=== PATIENT | male | born 1960 | race Caucasian/White ===

== ENCOUNTER 2016-09-28 09:07 | Emergency (ER) | payer OTHER ==
[2016-09-28 09:58] VITALS: BP 149/88
--- NOTE | 2016-09-28 16:13 | UC ---
IEzequiel,Sergio, scribed for Hafsa You MD on 09/28/16 at 1008 . Lower Extremity/Ankle HPI - HPI Summary HPI Summary: This 55 y/o male presents to [facility] for chronic bilat BLE pain since 2 months ago. Pain is located sacral area, bilat lateral upper legs, and radiates down to bilat ankles. He has had physical therapy, and had X-ray taken via PCP about 2 weeks ago. He reports "a little hook in my spine" indicated in X-ray. He has defib/pacer in place, and states that he was denied MRI due to his defib. He denies any known spinal stenosis. He denies any prior injuries to legs or hips. He is able to ambulate independently. Prolonged standing makes the pain worse. Pain does not radiate to back. He is currently disabled due to his cardiac status. He also c/o nonproductive cough and sinus discomfort since a week. Negative fever. Plan of care involving discharge and outpatient f/u is discussed with pt and present at bedside, and they are agreeable. Physical therapy treatment and specialist's treatment are recommended. Questions regarding pain control with NSAID are answered. - History of Current Complaint Chief Complaint: UCLowerExtremity Stated Complaint: LEG PAIN Hx Obtained From: Patient, Medical Records Onset/Duration: Gradual Onset, Still Present Severity Initially: Mild Severity Currently: Mild Pain Intensity: 10 - when standing Pain Scale Used: 0-10 Numeric Aggravating Factor(s): Standing Alleviating Factor(s): Rest Able to Bear Weight: Yes - Allergies/Home Medications Allergies/Adverse Reactions: Allergies Allergy/AdvReac Type Severity Reaction Status Date / Time Lidocaine Allergy Tachycardia Verified 09/28/16 09:40 Home Medications: Home Medications Aspirin EC TAB* [Ecotrin EC TAB*] 1 tab QPM 09/28/16 [History Confirmed 09/28/16 ] Carvedilol TAB* [Coreg TAB*] 1 tab BID 09/28/16 [History Confirmed 09/28/16] Sotalol TAB* [Betapace TAB*] 120 mg SEE INSTRUCTIONS 09/28/16 [History Confirmed 09/28/16] Warfarin TAB(*) [Coumadin TAB(*)] 1 tab DAILY 09/28/16 [History Confirmed ] Warfarin TAB(*) [Coumadin TAB(*)] 1 tab WEEKLY 09/28/16 [History Confirmed 09/28] PMH/Surg Hx/FS Hx/Imm Hx Cardiovascular History Of: Reports: Cardiac Disorders, Pacemaker/ICD, Myocardial Infarction - Surgical History Surgical History: Yes Surgery Procedure, Year, and Place: Defib/Pacemaker. Gallbladder 2002. Appendix as child - Family History Known Family History: Positive: Cardiac Disease, Other - scoliosis to father, who worked as a dairy science teacher. - Social History Occupation: Disabled Lives: With Family Alcohol Use: Hx of alcohol dependence per pt Substance Use Type: None Smoking Status (MU): Never Smoked Tobacco Review of Systems Constitutional: Negative Skin: Negative Eyes: Negative ENT: Other - sinus pressure, PND Respiratory: Cough Cardiovascular: Negative Gastrointestinal: Negative Genitourinary: Negative Motor: Negative Neurovascular: Negative Musculoskeletal: Arthralgia, Other: - BLE pain Neurological: Negative Psychological: Negative All Other Systems Reviewed And Are Negative: Yes Physical Exam Triage Information Reviewed: Yes Appearance: Well-Appearing, No Pain Distress, Obese Vital Signs: Initial Vital Signs Resp 18 09/28/16 09:44 Vital Signs Reviewed: Yes Eyes: Positive: Conjunctiva Clear ENT: Positive: Pharynx normal, TMs normal Neck: Positive: Supple, Nontender, No Lymphadenopathy Respiratory: Positive: Lungs clear, Normal breath sounds, No respiratory distress Cardiovascular: Positive: RRR, No Murmur, Pulses Normal, Brisk Capillary Refill Abdomen Description: Positive: Nontender, No Organomegaly, Soft. Negative: CVA Tenderness (R), CVA Tenderness (L), Distended, Guarding, McBurney's Point Tenderness, Peritoneal Signs, Pulsatile Mass Bowel Sounds: Negative: Present Musculoskeletal: Positive: ROM Intact. Negative: Other: - No obvious sign of scoliosis. Normal gait, able to walk on heels and toes Neurological: Positive: Alert, Muscle Tone Normal, Other: - reflexes 2+ knee and ankle, sensation intact to light touch bilaterally Psychological Exam: Normal Skin Exam: Normal Re-Evaluation - Re-Evaluation First Eval Re-Evaluation Time: 10:16 Change: Unchanged Comment: Plan of care involving abx treatment and pain medications are discussed with pt and . Lower Extremity Course/Dx - Differential Dx/Diagnosis Differential Diagnosis/HQI/PQRI: Sprain, Strain, Other - scoliosis, spinal stenosis, bulging/herniated disc Provider Diagnoses: acute Back pain. acute sinusitis Discharge - Discharge Plan Condition: Stable Disposition: HOME Prescriptions: Amoxicillin/Clavulanate TAB* [Augmentin TAB 875*] 875 mg PO BID #20 tab Cyclobenzaprine TAB* [Flexeril TAB*] 10 mg PO TID PRN #20 tab PRN Reason: Pain Patient Education Materials: Back Pain (ED), Sinusitis (ED) Referrals: Barney Ocasio MD [Medical Doctor] - 2 Days Additional Instructions: Dr. You recommends that you take only acetaminophen for pain. You may take 1000mg four times a day. See the orthopedist regarding your leg pain. Dr. You feels that your leg pain is most likely coming from your back. Return to urgent care if any new or worsening symptoms. The documentation as recorded by the Ezequiel scherer Soohyun accurately reflects the service I personally performed and the decisions made by , Hafsa You MD.
== END 2016-09-28 10:30 | disposition home or self-care (01) ==
LOC: UCEAST 09:07
DX: M54.5 Low back pain (principal); J01.90 Acute sinusitis, unspecified; Z95.810 Presence of automatic (implantable) cardiac defibrillator; I25.2 Old myocardial infarction
CPT/HCPCS: 99212; G0463

== ENCOUNTER 2019-12-05 16:00 | Emergency (ER) | payer OTHER ==
--- NOTE | 2019-12-05 17:37 | UC ---
Respiratory Complaint HPI - HPI Summary HPI Summary: 58 yo with hx of atrial fibrillation, wth several days of nasal congestion and cough, without much production. He was seen by his PMD yesterday and given tessalon perles and flonase spray, without improvement. He is concerned that he is having more shortness of breath. No fever, chills, myalgias. He is concerned that he has pneumonia or bronchitis. Slept poorly last night, but that is not unusual for him, does not report wakening with difficulty breathing. He has a hx of CAD, with past stent several years ago. Does not take a statin because his cholesterol improved with weight loss. He states that he is not concerned about his heart. --treated September 2019 with amoxicillin and prednisone for dx of bronchitis. CXR done in September suggestive of COPD --no infectious contacts. He has been in self quarantine for the past week or so. - History of Current Complaint Stated Complaint: COLD SYPMTOMS Time Seen by Provider: 12/05/19 17:30 Hx Obtained From: Patient Onset/Duration: Gradual Onset, Lasting Days - 2 Timing: Intermittent Episodes Severity Initially: Mild Severity Currently: Moderate Character: Cough: Nonproductive Aggravating Factors: Exertion Alleviating Factors: Nothing Associated Signs And Symptoms: Positive: Dyspnea, Nasal Congestion - Risk Factors Pulmonary Embolism Risk Factors: Negative - Allergies/Home Medications Allergies/Adverse Reactions: Allergies Allergy/AdvReac Type Severity Reaction Status Date / Time lidocaine Allergy Tachycardia Verified 12/05/19 17:29 Home Medications: Home Medications Carvedilol TAB* [Coreg TAB*] 12.5 mg PO BID 09/28/16 [History Confirmed 12/05/19 ] Sotalol TAB* [Betapace 80 MG TAB*] 120 mg PO BID 09/28/16 [History Confirmed ] Warfarin TAB(*) [Coumadin TAB(*)] 1 tab PO DAILY 09/28/16 [History Confirmed ] Benzonatate CAP* [Tessalon 100 MG CAP*] 100 mg PO TID PRN 12/05/19 [History Confirmed 12/05/19] DOXYcycline CAP(*) [DOXYcycline 100MG CAP(*)] 100 mg PO BID #14 cap 12/05/19 [Rx ] Fluticasone NASAL SPRAY 50MCG* [Flonase NASAL SPRAY 50MCG*] 2 spr BOTH NARES DAILY 12/05/19 [History Confirmed 12/05/19] predniSONE [Prednisone 20 MG TAB] 2 tab PO DAILY #10 tablet 12/05/19 [Rx] PMH/Surg Hx/FS Hx/Imm Hx Cardiovascular History: Cardiac Disease, Atrial Fibrillation - paroxysmal - Surgical History Surgical History: Yes Surgery Procedure, Year, and Place: Defib/Pacemaker. Gallbladder 2002. Appendix as child - Family History Known Family History: Positive: Cardiac Disease, Other - scoliosis to father, who worked as a rattlesnake farmer. - Social History Occupation: Retired Lives: With Family Alcohol Use: None Substance Use Type: None Smoking Status (MU): Former Smoker Review of Systems All Other Systems Reviewed And Are Negative: Yes Constitutional: Positive: Fatigue Skin: Positive: Negative Eyes: Positive: Negative ENT: Positive: Sinus Congestion Respiratory: Positive: Shortness Of Breath, Cough Cardiovascular: Positive: Other - a fib, states had therapeutic INR within a few weeks.. Negative: Chest Pain Gastrointestinal: Positive: Negative - normal appetite Genitourinary: Positive: Negative Motor: Positive: Negative Neurovascular: Positive: Negative Musculoskeletal: Positive: Negative Neurological/Mental Status: Positive: Negative Psychological: Positive: Negative Is Patient Immunocompromised?: No Physical Exam Appearance: Well-Appearing, No Pain Distress, Other: - cngested Eye Exam: Normal ENT: Positive: Pharynx normal Neck: Positive: Supple, Nontender Respiratory: Positive: No respiratory distress - not tachypneic, no indrawing., Decreased breath sounds, Expiration - prolonged. Negative: Crackles, Rhonchi Cardiovascular: Positive: RRR, No Murmur Musculoskeletal Exam: Normal Musculoskeletal: Positive: No Edema Neurological: Positive: Alert, Muscle Tone Normal Psychological Exam: Normal Skin Exam: Normal Diagnostics - Radiology No standard instances Radiology Interpretation Completed By: ED Physician - Compared to September chest xray, possibly increase in right perihilar markings. No effusion, normal heart shadow. Re-Evaluation - Re-Evaluation First Eval Re-Evaluation Time: 18:35 - pulse ox 92%, occ 93 Change: Unchanged - no significant response to xopenex, some mild wheezing, no tachypnea or indrawing. Respiratory Course/Dx - Course Course Of Treatment: He declines ER evaluation at this time despite the slightly low O2 sat. States that if he does not improve he would want to go to [place] for treatment. He will begin prednisone and doxy for treatment. - Differential Dx/Diagnosis Differential Diagnosis/HQI/PQRI: Asthma, Bronchitis, Lower Resp Infection Provider Diagnosis: Bronchitis Discharge ED - Sign-Out/Discharge Documenting (check all that apply): Patient Departure All imaging exams completed and their final reports reviewed: No - Discharge Plan Condition: Stable Disposition: HOME Prescriptions: DOXYcycline CAP(*) [DOXYcycline 100MG CAP(*)] 100 mg PO BID #14 cap predniSONE [Prednisone 20 MG TAB] 2 tab PO DAILY #10 tablet Patient Education Materials: Acute Bronchitis (ED) Referrals: No Primary Care Phys,NOPCP [Primary Care Provider] - Additional Instructions: You are being treated with prednisone and doxycycline for suspected bronchitis, possible early pneumonia. The radiologist will review the xray in the morning and you will be called if there is additional information based on the report. Please take the full course of antibiotics. If you have persistent difficulty breathing, please call [phone] and proceed to the emergency department for evaluation. - Billing Disposition and Condition Condition: STABLE Disposition: Home
[2019-12-05 17:39] VITALS: BP 153/87
[2019-12-05] MEDS ORDERED: Levalbuterol 0.63MG/3ML NEB* UNIT OF USE INH ONE (17:50)
--- NOTE | 2019-12-06 08:52 | UC ---
- Progress Note Progress Note: Please call patient - the radiologist did not think CXR 12/06/19 significantly different then CXR on 09/17/19 Continue treatment as prescribed lij Patient Name: ANITA MCGOWAN Medical Record#: [id number] Ordering Physician: Juliann Sams MD Acct.#: [id number] : 1960 Age: 58 Sex: M Location: [facility] Exam Date: 12/05/19 1750 ADM Status: DEP ER Order Information: CHEST PA & LAT 2 VWS Accession Number: [id number] CPT: 60074 HISTORY: cough/dyspnea x 2 days, hx of poss COPD COMPARISONS: September 17, 2019 VIEWS: 4: Frontal dual-energy and lateral views of the chest. FINDINGS: CARDIOMEDIASTINAL SILHOUETTE: The cardiomediastinal silhouette is normal. ANURADHA: The perihilar density described in the initial assessment is not appreciated on the submitted images. The appearance is felt to be similar to September 17, 2019. PLEURA: The costophrenic angles are sharp. No pleural abnormalities are noted. LUNG PARENCHYMA: The lungs are clear. ABDOMEN: The upper abdomen is clear. There is no subphrenic gas. BONES AND SOFT TISSUES: No bone or soft tissue abnormalities are noted. OTHER: A left-sided AICD pacemaker is noted. IMPRESSION: NO ACTIVE CARDIOPULMONARY DISEASE. R2 Preliminary Imaging Read R2 <Electronically signed by Mj Baltazar MD in [place]> 12/06/19 0752 Dictated By: Mj Baltazar MD Dictated Date/Time: 12/06/19 0750 Transcribed Date/Time: 12/06/19 0750 Copy to: CC:Juliann Sams MD; No Primary Care Phys,NOPCP Imaging - [facility] Imaging - [facility] Imaging - [facility] [address] [address] ph [phone]) ph ([phone]) ph ([phone]) This report is only to be considered final once signed by the Provider(s) as displayed in the "<Electronically Signed by >" field (s). Absence of a signature indicates the report is in a draft status and still needs to be finalized. In the event this document was created by someone other than the signing Provider, the individual initiating the document will be listed in the "Entered by:" or "Dictated by:" briceño. 1 of 1 Course/Dx - Diagnoses Provider Diagnoses: Bronchitis Discharge ED - Sign-Out/Discharge Documenting (check all that apply): Post-Discharge Follow Up All imaging exams completed and their final reports reviewed: Yes - Discharge Plan Condition: Stable Disposition: HOME Prescriptions: DOXYcycline CAP(*) [DOXYcycline 100MG CAP(*)] 100 mg PO BID #14 cap predniSONE [Prednisone 20 MG TAB] 2 tab PO DAILY #10 tablet Patient Education Materials: Acute Bronchitis (ED) Referrals: No Primary Care Phys,NOPCP [Primary Care Provider] - Additional Instructions: You are being treated with prednisone and doxycycline for suspected bronchitis, possible early pneumonia. The radiologist will review the xray in the morning and you will be called if there is additional information based on the report. Please take the full course of antibiotics. If you have persistent difficulty breathing, please call [phone] and proceed to the emergency department for evaluation. - Billing Disposition and Condition Condition: STABLE Disposition: Home
== END 2019-12-05 18:52 | disposition home or self-care (01) ==
LOC: UCEAST 16:00
DX: J40 Bronchitis, not specified as acute or chronic (principal); I48.0 Paroxysmal atrial fibrillation; Z79.01 Long term (current) use of anticoagulants; Z95.810 Presence of automatic (implantable) cardiac defibrillator; Z95.5 Presence of coronary angioplasty implant and graft; Z88.4 Allergy status to anesthetic agent; Z87.891 Personal history of nicotine dependence
CPT/HCPCS: 71046; 99212; G0463